=== PATIENT | female | born 1940 | race Caucasian/White ===

== ENCOUNTER 2023-08-08 12:39 | Emergency (ER) | payer SELFPAY ==
[~2023-08-08] VITALS: Ht 152.4 cm; Wt 61.0 kg
[2023-08-08 13:02] VITALS: BP 114/71; PULSE 73; RESP 20; TEMP 98.3; O2SAT 97
== END 2023-08-08 15:02 | disposition left against medical advice (07) ==
LOC: ER 12:39
DX: R51.9 Headache, unspecified (principal); Z53.21 Procedure and treatment not carried out due to patient leaving prior to being seen by health care provider
CPT/HCPCS: 99281